=== PATIENT | female | born 1990 | race Caucasian/White ===

== ENCOUNTER 2018-10-19 16:55 | Inpatient (IN) | payer SELFPAY ==
[~2018-10-19] VITALS: Ht 162.6 cm; Wt 63.5 kg
[2018-10-19] MEDS ORDERED: LACT. RINGERS/OXYTOCIN 20UNITS 1,000 ML IV SCH (17:22)
[2018-10-19] MEDS ORDERED: LACTATED RINGER'S 1,000 ML IV SCH (17:22)
[2018-10-19] MEDS ORDERED: DERMOPLAST 60ML BOTTLE TOP PRN (17:30)
[2018-10-19] MEDS ORDERED: WITCH HAZEL-GLYCERIN PAD TOP PRN (17:30)
[2018-10-19] MEDS ORDERED: PENICILLIN G POT 5MIL/D5 50ML 50 ML IV ONE (17:30)
[2018-10-19] MEDS ORDERED: PHISODERM TOP SOLN 240ML BTL TOP PRN (17:30)
[2018-10-19] MEDS ORDERED: LIDOCAINE 2%HCL (LOCAL ANESTH.) INJ 20ML MDV ONE (17:37)
[2018-10-19] MEDS ORDERED: PREN-96 PO (17:42)
[2018-10-19 18:03] LABS: Urine Bacteria NONE SEEN /hpf (None Seen); Urine Blood 2+ /uL (Negative); Urine Mucus FEW (None Seen); Urine Specific Gravity 1.022 (1.001-1.035); Urine WBC 47 /hpf (0 - 5)
[2018-10-19 18:05] LABS: Amphetamine Screen, Urine NEGATIVE (NEGATIVE); Barbiturate Scree,Urine NEGATIVE (NEGATIVE); Benzodiazephine Screen, Urine NEGATIVE (NEGATIVE); Cannabinoid Screen, Urine POSITIVE (NEGATIVE); Cocaine Screen, Urine NEGATIVE (NEGATIVE); Opiate Scree,Urine NEGATIVE (NEGATIVE); Phencyclidine Screen, Urine NEGATIVE (NEGATIVE)
[2018-10-19] MEDS ORDERED: IBUPROFEN 600 MG TAB PO PRN (18:15)
[2018-10-19 19:00] LABS: Basophils # (auto) 0 uL; Basophils % (auto) 0.3 % (0.0-2.0); Eosinophils # (auto) 0.1 uL; Eosinophils % (auto) 0.4 % (0.0-7.0); Hematocrit 37.5 % (36.0-46.0); Hemoglobin 12.6 g/dL (12.2-16.2); Lymphocytes # (auto) 1.4 uL; Lymphocytes % (auto) 9.9 % (10.0-50.0); Mean Corpuscular Hemoglobin 28.6 pg (28.0-32.0); Mean Corpuscular Hgb Conc. 33.5 g/dL (32.0-36.0); Mean Corpuscular Volume 85.5 fL (80.0-100.0); Monocytes # (auto) 0.7 uL; Monocytes % (auto) 5.3 % (0.0-12.0); Neutrophils # (auto) 11.6 uL; Neutrophils % (auto) 84.1 % (37.0-80.0); Platelet Count (auto) 192 10^3/uL (140-450); Red Blood Cells 4.39 10^6/uL (4.0-5.20); Red Cell Distribution Width 14.3 % (11.8-14.3); White Blood Cell 13.8 10^3/uL (4.4-10.8)
[2018-10-19 19:16] LABS: Alanine Aminotransferase 15 U/L (13-56); Albumin 2.8 g/dL (3.4-5.0); Anion Gap 4 (5-15); Aspartate Aminotransferase 18 U/L (15-37); Blood Urea Nitrogen 7 mg/dL (7-18); Calcium 8.5 mg/dL (8.5-10.1); Carbon Dioxide 25 mmol/L (21-32); Chloride 106 mmol/L (98-107); Glucose 81 mg/dL (74-106); Potassium 3.7 mmol/L (3.5-5.1); Sodium 135 mmol/L (136-145); Uric Acid 3.3 mg/dL (2.6-6.0)
[2018-10-19 19:18] LABS: Alkaline Phosphatase 191 U/L (45-117); BUN/Creatinine Ratio 14.6; Bilirubin, Total 0.2 mg/dL (0.2-1.0); Total Protein 6.7 g/dL (6.4-8.2)
[2018-10-19 19:20] LABS: GFR African American > 60 mL/min; GFR Non-African American > 60 mL/min
[2018-10-19 19:29] LABS: INR 0.86 (0.9-1.15); Partial Thromboplastin Time 24.2 sec (23.78-33.04); Prothrombin Time 9.3 sec (9.27-12.13)
[2018-10-19] MEDS ORDERED: PENICILLIN G POTASSIUM 2,500,000 UNITS in D5W 5% 50 ML IV SCH (21:30)
[2018-10-19 22:51] VITALS: BP 144/78
[2018-10-20 02:53] VITALS: BP 136/86
[2018-10-20 10:50] VITALS: BP 127/74
[2018-10-20 15:00] VITALS: BP 133/86
[2018-10-20 19:00] VITALS: BP 133/81
[2018-10-20] MEDS ORDERED: INFLUENZA QUAD 2018-2019 0.5 ML SYRG IM ONE (20:45)
[2018-10-20] MEDS ORDERED: TETANUS-DIPTH-ACEL PERTUSSIS 0.5ML SYRG IM ONE (20:45)
[2018-10-20 22:52] VITALS: BP 129/75
[2018-10-21 02:49] VITALS: BP 126/66
[2018-10-21 06:06] LABS: RPR Non Reactive (Non Reactive)
[2018-10-21 07:00] VITALS: BP 113/65
[2018-10-21 08:50] VITALS: BP 130/69
[2018-10-21 12:07] LABS: Rubella Antibodies, IgG 1.53 index (Immune >0.99)
== END 2018-10-21 09:10 | disposition home or self-care (01) | DRG 807 ==
LOC: LDRP 16:55 → OBSVTOIN 16:55
PROVIDERS: ADMIT Specialist; ATTEND Specialist
PROC: 10E0XZZ Delivery of Products of Conception, External Approach (ICD-10-PCS; principal; 2018-10-19)
PROC: 10907ZC Drainage of Amniotic Fluid, Therapeutic from Products of Conception, Via Natural or Artificial Opening (ICD-10-PCS; 2018-10-19)
PROC: 3E0P7VZ Introduction of Hormone into Female Reproductive, Via Natural or Artificial Opening (ICD-10-PCS; 2018-10-19)
DX: O62.3 Precipitate labor (principal); Z37.0 Single live birth; Z3A.39 39 weeks gestation of pregnancy; Z23 Encounter for immunization
CPT/HCPCS: 36415; 59025; 59409; 80053; 80307; 81001; 84550; 85025; 85610; 85730; 86592; 86703; 86762; 86850; 86900; 86901; 87340; 90674; 90715; G0378; J2540; J2590; J7060